=== PATIENT | female | born 1965 | race Caucasian/White ===

== ENCOUNTER 2017-11-15 09:15 | Emergency (ER) | payer OTHER ==
[~2017-11-15] VITALS: Ht 160 cm; Wt 81.6 kg
[~2017-11-15 09:15] MED LIST: AMLODIPINE10 M1 PO; GLIPIZIDE10 MG PO; LAC PO; LANTUS SOLOS100 U/M1 SQ; LEVOFLOXACIN500 M1 PO; LIPITOR80 MG PO; METFORMIN HCL1000 MG PO; PLA75 PO; ZESTRIL20 MG PO
[2017-11-15 09:22] VITALS: BP 112/81; Ht 160 cm; Wt 81.6 kg
== END 2017-11-15 10:29 | disposition home or self-care (01) ==
LOC: ED 09:15
DX: R21 Rash and other nonspecific skin eruption (principal)

== ENCOUNTER 2017-12-21 05:49 | Emergency (ER) | payer OTHER ==
[~2017-12-21] VITALS: Ht 160 cm; Wt 74.4 kg
[2017-12-21 05:56] VITALS: BP 128/81; Ht 160 cm; Wt 74.4 kg
== END 2017-12-21 06:45 | disposition home or self-care (01) ==
LOC: ED 05:49
DX: L02.612 Cutaneous abscess of left foot (principal); I10 Essential (primary) hypertension; E11.9 Type 2 diabetes mellitus without complications; Z86.73 Personal history of transient ischemic attack (TIA), and cerebral infarction without residual deficits
CPT/HCPCS: J2001

== ENCOUNTER 2018-01-19 07:52 | Emergency (ER) | payer OTHER ==
[~2018-01-19] VITALS: Ht 160 cm; Wt 82.6 kg
[2018-01-19 07:55] VITALS: Ht 160 cm; Wt 82.6 kg
[2018-01-19 09:10] VITALS: BP 123/79
== END 2018-01-19 09:10 | disposition home or self-care (01) ==
LOC: ED 07:52
DX: L01.09 Other impetigo (principal); I10 Essential (primary) hypertension; E11.9 Type 2 diabetes mellitus without complications; E78.00 Pure hypercholesterolemia, unspecified; Z86.73 Personal history of transient ischemic attack (TIA), and cerebral infarction without residual deficits
CPT/HCPCS: J0690

== ENCOUNTER 2018-01-22 06:34 | Emergency (ER) | payer OTHER ==
[~2018-01-22] VITALS: Ht 160 cm; Wt 82.6 kg
[2018-01-22 07:04] VITALS: BP 124/68
== END 2018-01-22 08:00 | disposition home or self-care (01) ==
LOC: ED 06:34
DX: S61.401D Unspecified open wound of right hand, subsequent encounter (principal); I10 Essential (primary) hypertension; E11.9 Type 2 diabetes mellitus without complications; E78.00 Pure hypercholesterolemia, unspecified; Z86.73 Personal history of transient ischemic attack (TIA), and cerebral infarction without residual deficits; Z98.890 Other specified postprocedural states; X58.XXXD Exposure to other specified factors, subsequent encounter
CPT/HCPCS: 82962